=== PATIENT | female | born 1955 | race Caucasian/White ===

== ENCOUNTER 2017-07-17 17:44 | Emergency (ER) | payer BC, OTHER ==
[~2017-07-17 17:44] MED LIST: ALPR0.25 PO; ALPR0.5T PO; AMIT10TA PO; ASPI-612 PO; CEPH-264 PO; CIPR500T95 PO; CITA20TA5 PO; CITA20TA9 PO; FERR-26 PO; FERR325T72 PO; HYDR-2758 PO; METO25TA2 PO; MULT-246 PO; Metoprolol Tartrate PO; NITR0.4T SL; PANT40TA3 PO; POTA99TA10 PO; SIMV40TA3 PO; SUCR1TAB35 PO; Sennosides/Docusate Sodium PO; TRAM50TA PO; VITA1TAB19 PO
[2017-07-17 18:14] VITALS: BP 120/68
--- NOTE | 2017-07-17 18:49 | PHYS DOC ---
Past Medical History Past Medical History: CAD, High Cholesterol, Hypertension, [place] Past Surgical History: Coronary Bypass Surgery, Hysterectomy Additional Past Surgical Histo: Cardiac stent placement,neck surgery(polyp) Alcohol Use: None Drug Use: None Adult General Chief Complaint Chief Complaint: FINGER INJURY HPI HPI Patient is a 62 year old female with history of right index finger mild throbbing pain after hitting it on a bed frame today. Review of Systems Review of Systems Constitutional: Denies fever or chills [] Musculoskeletal: right index finger mild throbbing pain Integument: Denies rash or skin lesions [] Neurologic: Denies headache, focal weakness or sensory changes [] Allergies Allergies Allergies Coded Allergies Type Severity Reaction Last Updated Verified No Known Drug Allergies 02/06/16 No Physical Exam Physical Exam Constitutional: Well developed, well nourished, no acute distress, non-toxic appearance. [] Skin: Warm, dry, no erythema, no rash. [] Back: No tenderness, no CVA tenderness. [] Extremities: Right index finger with mild bruising on the ventral aspect proximal end of the finger. Full range of motion to the right index finger. +2 right radial pulse. Adequate radial sensation to the right index finger. Sensation intact to the right index finger. Cap refill less than 2 seconds the right index finger. Neurologic: Alert and oriented X 3, normal motor function, normal sensory function, no focal deficits noted. [] Psychologic: Affect normal, judgement normal, mood normal. [] Current Patient Data Vital Signs Vital Signs Date Time Temp Pulse Resp B/P (MAP) Pulse Ox O2 Delivery O2 Flow Rate FiO2 07/17/17 18:14 98.0 65 18 97 Room Air 98.0 EKG EKG [] Radiology/Procedures Radiology/Procedures [] Course & Med Decision Making Course & Med Decision Making Pertinent Labs and Imaging studies reviewed. (See chart for details) Patient is in the ED with right index contusion. Right index finger x-rays interpreted by Dr. Pro are negative for any acute findings. Splint provided to the finger by ED RN, neurovascular exam is intact. Ice elevation encouraged. Diclofenac for pain. Follow-up with Ortho in one week Tamiko Disclaimer Dragon Disclaimer This electronic medical record was generated, in whole or in part, using a voice recognition dictation system. Departure Departure Impression: Primary Impression: Contusion of right index finger Disposition: 01 HOME, SELF-CARE Condition: STABLE Referrals: SHIRLENE MUNGUIA MD (PCP) TO WAY II, MD Follow-up in one week if pain continues Patient Instructions: Contusion Additional Instructions: You were seen for right index finger contusion. Wear the splint as needed and tolerated. Ice and elevate the finger follow-up with your own doctor the provided orthopedic doctor in one week if pain continues. Scripts Diclofenac Sodium (DICLOFENAC SODIUM) 50 Mg Tablet.dr 1 TAB PO BID, #10 TAB 1 Refill Prov: JOHN PRESLEY APRN 07/17/17 Problem Qualifiers Primary Impression: Contusion of right index finger Encounter type: initial encounter Damage to nail status: without damage Qualified Codes: S60.021A - Contusion of right index finger without damage to nail, initial encounter JOHN PRESLEY APRN Jul 17, 2017 18:49
[2017-07-17] MEDS ORDERED: DICL50TA4 PO (19:08)
--- NOTE | 2017-07-18 08:27 | RAD ---
Indication injury to the index finger. An AP view of the right hand was obtained as well as additional oblique and lateral imaging targeted to the index finger. There is some mild soft tissue swelling of the index finger. No acute bony finding is seen
== END 2017-07-17 19:13 | disposition home or self-care (01) ==
LOC: ER 17:44
DX: S60.021A Contusion of right index finger without damage to nail, initial encounter (principal); I25.10 Atherosclerotic heart disease of native coronary artery without angina pectoris; E78.00 Pure hypercholesterolemia, unspecified; I10 Essential (primary) hypertension; I25.2 Old myocardial infarction; Z95.5 Presence of coronary angioplasty implant and graft; W22.8XXA Striking against or struck by other objects, initial encounter; Y93.89 Activity, other specified; Y92.89 Other specified places as the place of occurrence of the external cause; Y99.8 Other external cause status
CPT/HCPCS: 29130; 73140; 99284-25

== ENCOUNTER → 2018-04-29 | Outpatient (CLI) | payer OTHER | END | disposition home or self-care (01) | LOC: MAMMO 13:29 | DX: Z12.31 Encounter for screening mammogram for malignant neoplasm of breast (principal); I12.9 Hypertensive chronic kidney disease with stage 1 through stage 4 chronic kidney disease, or unspecified chronic kidney disease; N18.2 Chronic kidney disease, stage 2 (mild); E78.5 Hyperlipidemia, unspecified; E78.00 Pure hypercholesterolemia, unspecified; I25.10 Atherosclerotic heart disease of native coronary artery without angina pectoris; Z87.442 Personal history of urinary calculi | CPT/HCPCS: 77063; 77067 ==

== ENCOUNTER 2018-07-09 12:41 | Day surgery (SDC) | payer OTHER ==
[~2018-07-09] VITALS: Ht 170.2 cm; Wt 72.1 kg
[~2018-07-09 12:41] MED LIST changes: +AMIT25TA PO; +ATORVASTATIN CA80 MG PO; +CALC-31 PO; +CEFP200T PO; +CIPROFLOXACIN 400MG PREMIX 200 ML IV ONE; -CITA20TA5 PO; +CITA20TA6 PO; +DICL50TA4 PO; +DOCU-109 PO; -FERR-26 PO; +FERR325T14 PO; +HYDR-971 PO; +HYDROmorphone 2 MG/ML VIAL IV PRN; +IOHEXOL 300 MG/ML 100ML VIAL. ONE; +IV RINGERS,LACTATED 1000ML 1,000 ML IV SCH; +LIDOCAINE 1% PF 2 ML VIAL. ID PRN; +LIDOCAINE 2% JELLY 6ML IN APPLICATOR. ONE; +MORPHINE SULFATE 2 MG/ML VIAL. IV PRN; +NITR100C PO; +ONDANSETRON PF 4 MG/2 ML VIAL. IV PRN; +PANT20TA2 PO; +PROCHLORPERAZINE 10 MG/2 ML VIAL. IV PRN; +PSEU120T9 PO; +TICA90TA PO; +fentaNYL PF VIAL 100 MCG/2 ML VIAL IV PRN
[2018-07-09] MEDS ORDERED: IOHEXOL 300 MG/ML 100ML VIAL. ONE (12:44)
[2018-07-09] MEDS ORDERED: LIDOCAINE 2% JELLY 6ML IN APPLICATOR. ONE (12:44)
[2018-07-09] MEDS ORDERED: PROPOFOL 20 ML IV ONE (13:26)
[2018-07-09] MEDS ORDERED: MIDAZOLAM HCL/PF 2 MG/2 ML VIAL. ONE (13:26)
[2018-07-09] MEDS ORDERED: fentaNYL PF VIAL 100 MCG/2 ML VIAL ONE ×2 (13:26→15:53)
[2018-07-09] MEDS ORDERED: ONDANSETRON PF 4 MG/2 ML VIAL. ONE (13:27)
[2018-07-09] MEDS ORDERED: KETOROLAC 30 MG/ML INJ FOR OR. INJ ONE (13:27)
[2018-07-09] MEDS ORDERED: DEXAMETHASONE SOD PHOS 20 MG/5 ML VIAL. ONE (13:27)
[2018-07-09] MEDS ORDERED: ePHEDrine PF IN SALINE 50 MG/5 ML DISP.SYRIN IV ONE (14:13)
--- NOTE | 2018-07-09 16:31 | PDOC4 ---
OPERATIVE NOTE Pre-Op Diagnosis: right ureter stone right renal stone Post-Op Diagnosis: right renal stone right bidid renal pelvis right mid/upper pole compound calyces stones located in lowermost portion of upper collecting system Procedure Performed: right URS w laser stent Surgeon: Anesthesia Type: ga Blood Loss: 2ml Specimans Obtained: stone Findings: right UU ureter stricture v kink right renal stones Complications: none evident IKE CHATMAN MD Jul 09, 2018 16:31
--- NOTE | 2018-07-09 16:40 | DISCH ---
DISCHARGE INSTRUCTIONS Condition on Discharge Condition on Discharge: Stable Activity After Discharge Activity Instructions for Disc: Activity as tolerated Bathing Instructions: Shower-keep dressing dry, No Tub Bath until see Lifting Instructions after Dis: No heavy lifting Exercise Instruction after Dis: Progress as tolerated Driving Instructions after Dis: Do not drive, Do not drive today Weight Bearing Status after Di: No restrictions, Full weight bearing Diet after Discharge Diet after Discharge: Regular Diet Texture: Regular Liquid Texture: Thin Liquid Swallowing Supervision: None needed Wound Incision Care Wound/Incision Care: May get incision wet, No wound care needed Checks after Discharge Checks after discharge: Check blood press - daily Contacting the after DC Call your doctor for: Fever greater than 100 Follow-Up Follow up with: dr gaines 2 weeks w AGUSTO prior and possible stent removal in clinic Treatment/Equipment after DC Adaptive Equipment Issued: IKE Nagy MD Jul 09, 2018 16:40
[2018-07-09] MEDS ORDERED: HYDR-971 PO (16:41)
[2018-07-09] MEDS ORDERED: SULF1TAB24 PO (16:42)
[2018-07-09] MEDS ORDERED: TAMS0.4C97 PO (16:43)
[2018-07-09] MEDS ORDERED: HYDROcodone/APAP 5/325MG 1 TAB TABLET PO ONE (18:15)
[2018-07-09] MEDS ORDERED: HYDROcodone/APAP 5/325MG 1 TAB TABLET ONE (18:16)
--- NOTE | 2018-07-09 18:19 | OP ---
DATE OF SURGERY: 07/09/2018 PREOPERATIVE DIAGNOSIS: Right renal stone, right ureter stone. POSTOPERATIVE DIAGNOSES: 1. Right renal stone. 2. Right upper ureter stricture versus kink. 3. 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 PROCEDURE: Right ureteroscopy with laser lithotripsy and stent replacement. SURGEON: Usha Reynolds M.D. ANESTHESIA: General. CONDITION: Stable. COMPLICATIONS: None. ESTIMATED BLOOD LOSS: 2 mL FINDINGS: 1. Right upper ureter stricture versus kink with difficulty performing the proximal ureteroscopy and get into the kidney. 2. 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 The mid and upper calices are compound calices with very large collecting system. The stone was most dependent portion of the upper collecting system. PROCEDURE IN DETAIL: The patient was taken back to the procedure room and placed under general anesthesia in supine position per protocol. She was prepped and draped in usual sterile fashion in dorsal lithotomy position. Timeout was performed. SCDs were attached. IV antibiotics were administered. A 21-Gabonese rigid cystoscope was advanced per urethra into the bladder, was then visualized and covered with sensor wire into the collecting system. Given her preexisting knowledge of anatomical variant, the wire was seen entering the collecting system. Dual lumen ureteral catheter was placed. We placed a working wire. A ureteral access sheath was used to get close to the proximal ureter. Unable to advance into the kidney even with several maneuvers. Ureteroscope was removed and dual lumen ureteral catheter was used to straighten out the sensor wire and advanced into the upper collecting system. A safety wire was placed alongside it also in the upper collecting system. Aortic catheter was removed and scope was advanced over the wire all the way into the upper collecting system. I had poor visualization at this point and several maneuvers for better position failed; therefore, I switched to a digital ureteroscope. Stone was visualized in the lower most pole of the upper collective system, which was very dilated. There were 3-4 fragments that were spiculated. These were pulverized with 200 nanometer laser fiber. These were easily irrigated through the sheath. Two small pieces were removed and sent for analysis. Upon final inspection, there was no evidence of any potential obstructive stone. Pyelography visualized. No filling defects. Upon withdrawal of the scope, the proximal ureter had a mucosal abrasion from presumed instrumentation versus preexisting stricture, which is dilated during dual lumen ureteral catheter placement. Last, the ureter looked intact. I placed a stent endourologic with 6 x 26 stent with loops confirmed in the kidney and the bladder. The patient was awakened and taken to PACU in stable condition. DISPOSITION: I will keep the stent in there for 2 weeks given ureter stricture dilation. We will get a KUB 2 weeks afterwards. If no residual fragments, we will take out the stent in the clinic. USHA REYNOLDS MD DR: PORSHA/maggy JOB#: [id number] / [id number]
[2018-07-09 18:25] VITALS: BP 137/59
== END 2018-07-09 19:15 | disposition home or self-care (01) ==
LOC: SURG 12:41
PROVIDERS: ATTEND Urology
DX: N20.0 Calculus of kidney (principal); N13.5 Crossing vessel and stricture of ureter without hydronephrosis; I25.10 Atherosclerotic heart disease of native coronary artery without angina pectoris; K44.9 Diaphragmatic hernia without obstruction or gangrene; Q63.8 Other specified congenital malformations of kidney; I10 Essential (primary) hypertension; E78.5 Hyperlipidemia, unspecified; K21.9 Gastro-esophageal reflux disease without esophagitis; M19.90 Unspecified osteoarthritis, unspecified site; F41.9 Anxiety disorder, unspecified; I25.2 Old myocardial infarction; Z86.010 Personal history of colon polyps; Z95.1 Presence of aortocoronary bypass graft; Z79.899 Other long term (current) drug therapy; Z79.82 Long term (current) use of aspirin; Z90.710 Acquired absence of both cervix and uterus; Z95.5 Presence of coronary angioplasty implant and graft; Z90.49 Acquired absence of other specified parts of digestive tract; Z98.890 Other specified postprocedural states; Z87.891 Personal history of nicotine dependence
CPT/HCPCS: 52356; 76000; A7015; C1713; C1769; C2617; J0744; J1100; J1885; J2250; J2405; J2704; J3010; J7120; Q9967

== ENCOUNTER → 2018-07-29 | Outpatient (CLI) | payer OTHER ==
[2018-07-09 18:25] VITALS: BP 137/59
[~2018-07-29] MED LIST changes: -CIPROFLOXACIN 400MG PREMIX 200 ML IV ONE; -HYDROmorphone 2 MG/ML VIAL IV PRN; -IOHEXOL 300 MG/ML 100ML VIAL. ONE; -IV RINGERS,LACTATED 1000ML 1,000 ML IV SCH; -LIDOCAINE 1% PF 2 ML VIAL. ID PRN; -LIDOCAINE 2% JELLY 6ML IN APPLICATOR. ONE; -MORPHINE SULFATE 2 MG/ML VIAL. IV PRN; -ONDANSETRON PF 4 MG/2 ML VIAL. IV PRN; -PROCHLORPERAZINE 10 MG/2 ML VIAL. IV PRN; +SULF1TAB24 PO; +TAMS0.4C97 PO; -fentaNYL PF VIAL 100 MCG/2 ML VIAL IV PRN
--- NOTE | 2018-07-29 17:04 | RAD ---
KUB, 07/29/2018: HISTORY: Right renal calculus with stent, follow-up A right ureteral stent is in place with its upper pigtail projected over the region of the right renal pelvis and its lower pigtail projected over the inferior aspect of the urinary bladder. The tiny calculus present in the proximal right ureter on the CT study of 06/17/2018 is no longer visible at that level. A small radiopacity projected near the shaft of the right ureteral stent at the upper sacral level is probably arterial in nature. A ureteral calculus is less likely. The abdominal gas pattern is unremarkable. Surgical clips are present in the right upper quadrant and in the upper pelvis near the midline. There is no evidence organomegaly. IMPRESSION: The right ureteral stent is in satisfactory position. Electronically signed by: Tyrese Patton MD (07/29/2018 5:01 PM) [facility]
== END | disposition home or self-care (01) ==
LOC: RAD 14:31
PROVIDERS: ATTEND Urology
DX: N20.0 Calculus of kidney (principal)
CPT/HCPCS: 74018

== ENCOUNTER → 2019-03-16 | Outpatient (CLI) | payer MEDICARE ==
[~2019-03-16] MED LIST changes: -HYDR-2758 PO; +HYDR-2761 PO; +HYDR-3164 PO; -HYDR-971 PO
--- NOTE | 2019-03-16 12:08 | RAD ---
MR of the left knee HISTORY: Chronic knee pain. TECHNIQUE: Routine multiplanar sequences are obtained. FINDINGS: Mild distortion and signal at the posterior root attachment of the medial meniscus compatible with mild degeneration. No actual tear is seen. No evidence of lateral meniscal tear. The anterior and posterior cruciate ligaments are intact. Medial collateral ligament is intact. Iliotibial band unremarkable. Fibular collateral ligament, biceps femoris tendon and popliteus tendon are intact. Extensor mechanism is intact. Increased signal and thickening of the medial gastrocnemius tendon at the femoral attachment with subjacent cystic change. Subchondral cystic change and chondromalacia at the posterior nonweightbearing lateral femoral condyle. Chondral thinning at the posterior lateral tibial plateau. No aggressive bone destruction or acute fracture. Small Stone's cyst. IMPRESSION: 1. Primary osteoarthritis. 2. Degenerative change. 3. Tendinosis and/or partial tearing of the medial gastrocnemius tendon attachment to the femur. Electronically signed by: Valeriy Shell MD (03/16/2019 12:05 PM) [id number]
== END | disposition home or self-care (01) ==
LOC: MRI 10:02
PROVIDERS: ATTEND Nurse Practitioner Family
DX: M94.262 Chondromalacia, left knee (principal); M17.12 Unilateral primary osteoarthritis, left knee; M71.22 Synovial cyst of popliteal space [Baker], left knee; G89.29 Other chronic pain
CPT/HCPCS: 73721

== ENCOUNTER → 2019-11-30 | Day surgery (SDC) | payer MEDICARE ==
[~2019-11-30] MED LIST changes: +HYDROmorphone 2 MG/ML VIAL IV PRN; +IV RINGERS,LACTATED 1000ML 1,000 ML IV SCH; +LIDOCAINE 1% PF 2 ML VIAL. ID PRN; +LIDOCAINE 2% PF 5 ML VIAL. ONE; +MORPHINE SULFATE 2 MG/ML VIAL. IV PRN; -NITR0.4T SL; +NITR0.4T24 SL; +ONDANSETRON PF 4 MG/2 ML VIAL. IV PRN; -PANT40TA3 PO; +PANT40TA77 PO; +PROCHLORPERAZINE 10 MG/2 ML VIAL. IV PRN; +PROPOFOL 20 ML IV ONE; +SIMV40TA18 PO; -SIMV40TA3 PO; +fentaNYL PF VIAL 100 MCG/2 ML VIAL IV PRN
--- NOTE | 2019-11-30 13:29 | PDOC4 ---
PROCEDURE Procedure EGD/dilation Indication: dysphagia Meds: per anesthesia Findings: E--Healed reflux/Shatzk's ring at 35cm. G--Small hiatal hernia. D--normal to second. --Dilated with 52F hodges; nil resistance and no blood on dilator after. Darwin. well. IMP: Anahy's, dilated. REC: Continue meds, diet as before. F/u in 2 weeks to gauge response to dilation. MAYRA LOPEZ MD Nov 30, 2019 13:29
[2019-11-30 13:58] VITALS: BP 121/59
== END ==
LOC: ENDOS 12:04
PROVIDERS: ATTEND Internal Medicine Gastroenterology
DX: R13.10 Dysphagia, unspecified (principal); K22.2 Esophageal obstruction; K21.0 Gastro-esophageal reflux disease with esophagitis; K44.9 Diaphragmatic hernia without obstruction or gangrene; E78.00 Pure hypercholesterolemia, unspecified; I10 Essential (primary) hypertension; Z87.39 Personal history of other diseases of the musculoskeletal system and connective tissue; Z95.820 Peripheral vascular angioplasty status with implants and grafts; Z86.010 Personal history of colon polyps; Z90.710 Acquired absence of both cervix and uterus; Z98.890 Other specified postprocedural states; Z95.1 Presence of aortocoronary bypass graft
CPT/HCPCS: 43235; 43450; J2001; J2704

== ENCOUNTER → 2020-05-27 | Outpatient (CLI) | payer MEDICARE ==
[2019-11-30 13:58] VITALS: BP 121/59
[~2020-05-27] MED LIST changes: -ASPI-612 PO; +ASPI-886 PO; -HYDROmorphone 2 MG/ML VIAL IV PRN; -IV RINGERS,LACTATED 1000ML 1,000 ML IV SCH; -LIDOCAINE 1% PF 2 ML VIAL. ID PRN; -LIDOCAINE 2% PF 5 ML VIAL. ONE; -MORPHINE SULFATE 2 MG/ML VIAL. IV PRN; -ONDANSETRON PF 4 MG/2 ML VIAL. IV PRN; -PROCHLORPERAZINE 10 MG/2 ML VIAL. IV PRN; -PROPOFOL 20 ML IV ONE; +TOPI25TA7 PO; -fentaNYL PF VIAL 100 MCG/2 ML VIAL IV PRN
== END | disposition home or self-care (01) ==
LOC: LAB 09:09
PROVIDERS: ATTEND Internal Medicine Gastroenterology
DX: Z01.812 Encounter for preprocedural laboratory examination (principal); Z20.828 Contact with and (suspected) exposure to other viral communicable diseases
CPT/HCPCS: U0003-CS

== ENCOUNTER → 2020-05-30 | Day surgery (SDC) | payer MEDICARE ==
[~2020-05-30] MED LIST changes: +IV RINGERS,LACTATED 1000ML 1,000 ML IV SCH; +LIDOCAINE 2% PF 5 ML VIAL. ONE; +PROPOFOL 10 MG/ML (20ML) VIAL. IV ONE
--- NOTE | 2020-05-30 13:00 | PDOC1 ---
History and Physical Date of Admission Date of Admission DATE: 05/30/20 TIME: 12:55 Identification/Chief Complaint Chief Complaint H/o polyps Source Source: Chart review, Patient History of Present Illness History of Present Illness 65 y/o female with h/o colon polyps, last surveillance in 2016 and presents for same. Known diverticulosis. H/o GERD and post-kolton. Past Medical History Cardiovascular: CAD, HTN, Hyperlipidemia Past Surgical History Past Surgical History: Cholecystectomy, CABG, Hysterectomy Family History Family History: Coronary Artery Disease, Hypertension Social History ALCOHOL: none Current Medications Current Medications Current Medications Ringer's Solution 1,000 ml @ 50 mls/hr Q20H IV ; Start 05/30/20 at 07:00; Stop 05/30/20 at 18:59 Active Scripts Active Reported Topiramate 25 Mg Tablet 1 Tab PO BID 30 Days Colace (Docusate Sodium) 100 Mg Capsule 1 Cap PO BID Protonix (Pantoprazole Sodium) 20 Mg Tablet.dr 40 Mg PO DAILY08 Calcium 500 + D Tablet (Calcium Carbonate/Vitamin D3) 1 Each Tablet 1 Each PO BID Atorvastatin Calcium 80 Mg Tablet 80 Mg PO HS Carafate (Sucralfate) 1 Gm Tablet 1 Gm PO BID LAST DOSE 12/06 11AM Tramadol Hcl 50 Mg Tablet 1 Tab PO Q4HRS PRN Xanax (Alprazolam) 0.5 Mg Tablet 1 Tab PO BID PRN Multi-Vitamin Daily (Multivitamin) 1 Each Tablet 1 Each PO HS LAST DOSE 12/05 HS B Complex (Vitamin B Complex) 1 Each Tablet 1 Each PO DAILY LAST DOSE 03/ AM Aspirin Ec (Aspirin) 81 Mg Tablet.dr 1 Tab PO DAILY last dose 12/05 HS Toprol Xl (Metoprolol Succinate) 25 Mg Tab.er.24h 1 Tab PO BID last dose this am Allergies Allergies: Coded Allergies: No Known Drug Allergies (Unverified , 05/30/20) ROS Review of System Otherwise negative. Physical Exam General: Alert, Oriented X3, Cooperative, No acute distress Lungs: Clear to auscultation Heart: S1S2, RRR, no gallops, no murmurs Abdomen: Normal bowel sounds, Soft, No tenderness, No hepatosplenomegaly Rectal Exam: deferred (to time of procedure) Extremities: No cyanosis, No edema Skin: No significant lesion Neuro: Normal speech, Strength at 5/5 X4 ext, Normal tone, Sensation intact, Cranial nerves 3-12 NL, Reflexes 2+ Psych/Mental Status: Mental status NL, Mood NL Vitals Vitals Vital Signs Date Time Temp Pulse Resp B/P (MAP) Pulse Ox O2 Delivery O2 Flow Rate FiO2 05/30/20 12:30 97.8 89 18 98 97.8 VTE Prophylaxis Ordered VTE Prophylaxis Devices: No VTE Pharmacological Prophylaxi: No Assessment/Plan Assessment/Plan IMP: H/o polyps, due. PLAN: Colonoscopy MAYRA LOPEZ MD May 30, 2020 13:00
--- NOTE | 2020-05-30 13:23 | PDOC4 ---
PROCEDURE Procedure Colonoscopy Indication: h/o polyps Meds: per anesthesia Findings: BURKE normal --'Scope advanced to cecum. Prep excellent. Mucosa normal. Multiple diverticula, sigmoid. No polyps, masses, etc. Retroflex normal. Darwin. well. IMP: Diverticulosis REC: Repeat exam in 3-5 years. February f/u with me prn. Resume home meds, diet. MAYRA LOPEZ MD May 30, 2020 13:23
[2020-05-30 13:55] VITALS: BP 114/58
== END | disposition home or self-care (01) ==
LOC: ENDOS 12:20
PROVIDERS: ATTEND Internal Medicine Gastroenterology
DX: Z12.11 Encounter for screening for malignant neoplasm of colon (principal); I10 Essential (primary) hypertension; E78.5 Hyperlipidemia, unspecified; K57.30 Diverticulosis of large intestine without perforation or abscess without bleeding; I25.10 Atherosclerotic heart disease of native coronary artery without angina pectoris; Z90.49 Acquired absence of other specified parts of digestive tract; Z98.890 Other specified postprocedural states; Z79.899 Other long term (current) drug therapy; Z86.010 Personal history of colon polyps; Z82.49 Family history of ischemic heart disease and other diseases of the circulatory system; Z79.82 Long term (current) use of aspirin; Z87.891 Personal history of nicotine dependence
CPT/HCPCS: G0105; J2704; 45378

== ENCOUNTER 2021-09-13 11:22 | Emergency (ER) | payer MEDICARE ==
[~2021-09-13] VITALS: Ht 167.6 cm; Wt 73.2 kg
[~2021-09-13 11:22] MED LIST changes: -IV RINGERS,LACTATED 1000ML 1,000 ML IV SCH; -LIDOCAINE 2% PF 5 ML VIAL. ONE; -PROPOFOL 10 MG/ML (20ML) VIAL. IV ONE
[2021-09-13] MEDS ORDERED: IV NORMAL SALINE 1000ML BAG 1,000 ML IV ONE (12:15)
[2021-09-13] MEDS ORDERED: MAGNESIUM SULFATE 2GM 50 ML IV ONE (12:15)
[2021-09-13] MEDS ORDERED: diphenhydrAMINE 50 MG/ML VIAL IVP ONE (12:15)
[2021-09-13] MEDS ORDERED: PROCHLORPERAZINE 10 MG/2 ML VIAL. IV ONE (12:15)
[2021-09-13 12:35] LABS: BASO % 1 % (0-3); EOS # 0.1 x10^3/uL (0.0-0.7); EOS % 2 % (0-3); HEMATOCRIT 40.4 % (36.0-47.0); HEMOGLOBIN 13.3 g/dL (12.0-15.5); LYMPH # 0.5 x10^3/uL (1.0-4.8); LYMPH % 8 % (24-48); MEAN CORPUSCULAR HEMOGLOBIN 29 pg (25-35); MEAN CORPUSCULAR HGB CONC 33 g/dL (31-37); MEAN CORPUSCULAR VOLUME 89 fL (79-100); MONO # 0.4 x10^3/uL (0.0-1.1); MONO % 7 % (0-9); NEUT # 5.7 x10^3/uL (1.8-7.7); NEUT % 83 % (31-73); PLATELET COUNT 228 x10^3/uL (140-400); RED BLOOD COUNT 4.52 x10^6/uL (3.50-5.40); RED CELL DISTRIBUTION WIDTH 12.6 % (11.5-14.5); WHITE BLOOD COUNT 6.8 x10^3/uL (4.0-11.0)
[2021-09-13 12:50] LABS: CALCIUM 9.4 mg/dL (8.5-10.1); CREATININE 0.6 mg/dL (0.6-1.0); GFR 99.7; POTASSIUM 4.2 mmol/L (3.5-5.1)
[2021-09-13 12:54] LABS: INFLUENZA A PATIENT NEGATIVE (NEGATIVE); INFLUENZA B PATIENT NEGATIVE (NEGATIVE)
[2021-09-13 12:55] LABS: ALBUMIN 3.7 g/dL (3.4-5.0); ALBUMIN/GLOBULIN RATIO 1.1 (1.0-1.7); TOTAL BILIRUBIN 0.5 mg/dL (0.2-1.0); TOTAL PROTEIN 7.2 g/dL (6.4-8.2)
--- NOTE | 2021-09-13 13:50 | RAD ---
XR CHEST 1V INDICATION: headache COMPARISON STUDY: 06/18/2018. FINDINGS: Lungs: Normal lung volume. No pulmonary mass or consolidation. The tracheobronchial tree and hilar st ructures are normal. Pleura: No pleural effusion or pneumothorax. Heart and Mediastinum: Normal cardiac size. CABG. The great vessels of the thorax are normal. IMPRESSION: No acute cardiopulmonary process. Electronically signed by: Lalit Barker MD (09/13/2021 1:48 PM) [id number]
--- NOTE | 2021-09-13 13:55 | RAD ---
EXAM: CT Head without IV contrast CLINICAL HISTORY: headache COMPARISON: None. TECHNIQUE: Routine CT of the head without contrast. PQRS compliance statement - One or more of the following individualized dose reduction techniques wer e utilized for this study: 1. Automated exposure control 2. Adjustment of the mA and/or kV according to patient size 3. Use of iterative reconstruction technique FINDINGS: There is no evidence of hemorrhage, mass or extra-axial fluid collection. Chatterjee-white differentiation is maintained with no evidence of edema. There is no mass effect or shift of the intracranial structures. The ventricles, basilar cisterns and cortical sulci are normal in size and configuration for the radha ents stated age. The cerebellum and brainstem are unremarkable. The calvarium demonstrates no evidence of fracture or focal lesion. There is normal aeration of the visualized paranasal sinuses and mastoid air cells. The visualized portions of the orbits are normal. Atherosclerotic calcifications of the intracranial internal carotid and vertebral arteries is seen. IMPRESSION: No evidence for acute intracranial process. Electronically signed by: Enzo Malone MD (09/13/2021 1:53 PM) [facility]
[2021-09-13 15:29] VITALS: BP 157/72
[2021-09-13] MEDS ORDERED: KETOROLAC 15 MG/ML VIAL. IVP ONE (15:30)
[2021-09-13] MEDS ORDERED: ACETAMINOPHEN 500 MG TABLET PO ONE (15:30)
--- NOTE | 2021-09-13 15:52 | PHYS DOC ---
Past Medical History Past Medical History: CAD, High Cholesterol, Hypertension, [place] Past Surgical History: Angioplasty, Coronary Bypass Surgery, Hysterectomy Additional Past Surgical Histo: Cardiac stent placement,neck surgery(polyp) Smoking Status: Never Smoker Alcohol Use: None Drug Use: None Adult General Chief Complaint Chief Complaint: FLU SYMPTOM HPI HPI The patient is a 66-year-old female with a history of hypertension, hyperlipidemia, coronary artery disease and chronic headache on Topamax for prevention. Patient is fully vaccinated against COVID-19. Ms. Hou presents for evaluation of nasal congestion, rhinorrhea and mild dry cough with onset over the last day or so. Associated gradual onset bilateral frontal headache which she states feels similar to headaches she often gets, only worse. No associated fevers, vomiting, focal or lateralizing weakness, numbness or tingling, neck stiffness/pain/meningismus (patient ranges her neck fully in all dimensions without discomfort or distress), vision changes, shortness of breath or chest pain, abdominal pain, flank pain, back pain, dysuria, hematuria, polyuria or oliguria, changes in bowel habits. Patient is alert and pleasantly and appropriately interactive and in no acute distress with appropriate vital signs upon initial evaluation here in the emergency department. Review of Systems Review of Systems A 12 point review of systems was completed and was negative except where noted in HPI above. Current Medications Current Medications Current Medications Medications (Trade) Dose Ordered Sig/Keshawn Start Time Stop Time Status Last Admin Dose Admin Acetaminophen (Tylenol) 1,000 mg 1X ONCE 09/13/21 15:30 09/13/21 15:31 DC Diphenhydramine HCl (Benadryl) 25 mg 1X ONCE 09/13/21 12:15 09/13/21 12:16 DC 09/13/21 12:32 25 MG Info (CONTRAST GIVEN -- Rx MONITORING) 1 each PRN DAILY PRN 09/13/21 16:00 09/15/21 15:59 Iohexol (Omnipaque 350 Mg/ml) 75 ml 1X ONCE 09/13/21 16:00 09/13/21 16:01 DC 09/13/21 15:59 75 ML Ketorolac Tromethamine (Toradol 15mg Vial) 15 mg 1X ONCE 09/13/21 15:30 09/13/21 15:31 DC Magnesium Sulfate 50 ml @ 25 mls/hr 1X ONCE 09/13/21 12:15 09/13/21 14:14 DC 09/13/21 12:36 25 MLS/HR Prochlorperazine Edisylate (Compazine) 10 mg 1X ONCE 09/13/21 12:15 09/13/21 12:16 DC 09/13/21 12:33 10 MG Sodium Chloride 1,000 ml @ 1,000 mls/hr 1X ONCE 09/13/21 12:15 09/13/21 13:14 DC 09/13/21 12:35 1,000 MLS/HR Allergies Allergies Allergies Coded Allergies Type Severity Reaction Last Updated Verified No Known Drug Allergies 05/30/20 No Physical Exam Physical Exam 66-year-old female appearing nontoxic and in no acute distress. Head is normocephalic and atraumatic. Neck is supple and nontender. Oropharynx is moist. Lungs are clear to auscultation at all stations. There is a normal S1 and S2 without rubs or gallops and capillary refill is appropriate, less than 2 seconds globally. Abdomen is soft, nontender and nondistended. Skin is warm and dry without cyanosis, clubbing or edema. Psychiatrically, the patient demonstrates appropriate mood and affect and is alert. Neurologically, cranial nerves II through XII are intact and there are no lateralizing deficits seen. Speech is normal. Language is normal. Coordination is normal. There is no dysmetria with mioade-il-celd or [id number]-wu-[id number] bilaterally. Strength is 5 out of 5 in all joints of bilateral upper and lower extremities. Sensation is intact light touch in bilateral upper and lower extremities. Patient ambulates with a narrow, steady, non-ataxic gait here in the emergency department and is alert and oriented x4. Current Patient Data Vital Signs Vital Signs Date Time Temp Pulse Resp B/P (MAP) Pulse Ox O2 Delivery O2 Flow Rate FiO2 09/13/21 15:29 110 17 157/72 (100) 94 Room Air 09/13/21 11:48 98.7 98.7 Lab Values Laboratory Tests Test 09/13/21 12:10 09/13/21 12:20 Influenza Type A Antigen Negative (NEGATIVE) Influenza Type B Antigen Negative (NEGATIVE) SARS-CoV-2 Antigen (Rapid) Negative (NEGATIVE) White Blood Count 6.8 x10^3/uL (4.0-11.0) Red Blood Count 4.52 x10^6/uL (3.50-5.40) Hemoglobin 13.3 g/dL (12.0-15.5) Hematocrit 40.4 % (36.0-47.0) Mean Corpuscular Volume 89 fL (79-100) Mean Corpuscular Hemoglobin 29 pg (25-35) Mean Corpuscular Hemoglobin Concent 33 g/dL (31-37) Red Cell Distribution Width 12.6 % (11.5-14.5) Platelet Count 228 x10^3/uL (140-400) Neutrophils (%) (Auto) 83 % (31-73) H Lymphocytes (%) (Auto) 8 % (24-48) L Monocytes (%) (Auto) 7 % (0-9) Eosinophils (%) (Auto) 2 % (0-3) Basophils (%) (Auto) 1 % (0-3) Neutrophils # (Auto) 5.7 x10^3/uL (1.8-7.7) Lymphocytes # (Auto) 0.5 x10^3/uL (1.0-4.8) L Monocytes # (Auto) 0.4 x10^3/uL (0.0-1.1) Eosinophils # (Auto) 0.1 x10^3/uL (0.0-0.7) Basophils # (Auto) 0.0 x10^3/uL (0.0-0.2) Sodium Level 139 mmol/L (136-145) Potassium Level 4.2 mmol/L (3.5-5.1) Chloride Level 102 mmol/L (98-107) Carbon Dioxide Level 23 mmol/L (21-32) Anion Gap 14 (6-14) Blood Urea Nitrogen 13 mg/dL (7-20) Creatinine 0.6 mg/dL (0.6-1.0) Estimated GFR (Cockcroft-Gault) 99.7 BUN/Creatinine Ratio 22 (6-20) H Glucose Level 97 mg/dL (70-99) Calcium Level 9.4 mg/dL (8.5-10.1) Total Bilirubin 0.5 mg/dL (0.2-1.0) Aspartate Amino Transferase (AST) 42 U/L (15-37) H Alanine Aminotransferase (ALT) 30 U/L (14-59) Alkaline Phosphatase 126 U/L (46-116) H Total Protein 7.2 g/dL (6.4-8.2) Albumin 3.7 g/dL (3.4-5.0) Albumin/Globulin Ratio 1.1 (1.0-1.7) Laboratory Tests 09/13/21 12:20 Laboratory Tests 09/13/21 12:20 EKG EKG Sinus rhythm, rate 100, no acute ST elevation or depression, CA 142, QRS 94, QTc 460, EP interpretation. Nonischemic tracing, intervals appropriate. Radiology/Procedures Radiology/Procedures [] Course & Med Decision Making Course & Med Decision Making Elderly female with a history of chronic problems with headache as well as other comorbidities presenting for evaluation of nasal congestion, rhinorrhea and dry cough in association with a gradual onset bilateral frontal headache which she states is worse than her usual headaches. Labs, chest x-ray, and CT imaging are all nonacute. Patient is feeling better after therapy as per flow sheet here in the emergency department. Headache is nearly completely gone. Vital signs remained appropriate. In view of resolution of presenting symptoms and reassuring work-up in this well-appearing patient, will discharge home to follow-up very closely with primary care. Patient is to rest, hydrate and use her home medications for headache management. She understands that if she feels worse instead of better, develops recurrence of your symptoms or has any other new symptoms of concern that she is to return with him to the emergency department right away for reevaluation. All questions are answered. Dragon Disclaimer Dragon Disclaimer This electronic medical record was generated, in whole or in part, using a voice recognition dictation system. Departure Departure Impression: Primary Impression: Upper respiratory infection, viral Additional Impression: Acute headache Disposition: HOME / SELF CARE / HOMELESS Condition: IMPROVED Referrals: SHIRLENE MUNGUIA MD (PCP) Patient Instructions: General Headache Without Cause Additional Instructions: Follow-up very closely with your primary care doctor in the next 1 to 2 days in the office for a reevaluation of your symptoms and to discussion of next best steps in care. Drink plenty of fluids and get plenty of rest. Return to the emergency department right away for worsening symptoms of any kind or with any other new symptoms of concern. Problem Qualifiers LITA WORLEY MD Sep 13, 2021 15:52
[2021-09-13] MEDS ORDERED: IOHEXOL 350 MG/ML 100 ML VIAL. IV ONE (16:00)
[2021-09-13] MEDS ORDERED: CONTRAST GIVEN. MC PRN (16:00)
--- NOTE | 2021-09-13 16:52 | RAD ---
CLINICAL HISTORY: Reason: headache COMPARISON: None available. TECHNIQUE: CT angiogram of the head and neck was performed following the administration of IV contras t. Multiplanar reconstructed images were obtained including 3D reconstructed images performed on an [employer] work station. Stenosis if present in the carotid arteries were measured using [employer] crite kristine. PQRS compliance statement - One or more of the following individualized dose reduction techniques wer e utilized for this study: 1. Automated exposure control 2. Adjustment of the mA and/or kV according to patient size 3. Use of iterative reconstruction technique FINDINGS: CTA of the intracranial circulation reveals normal appearing distal internal carotid arteries includi ng the distal cervical, petrous, cavernous and supraclinoid portions. The anterior cerebral arteries are well visualized and without evidence of stenosis or occlusion. The middle cerebral arteries are well visualized and without evidence of stenosis or occlusion. The posterior cerebral arteries are well visualized and without evidence of stenosis or occlusion. The vertebral basilar system is normal with no evidence of stenosis or occlusion. Bovine configuration of the aortic arch. There is approximately 20 percent narrowing at the origin of the left subclavian artery. There is approximately 50 percent narrowing at the distal right common carotid artery just proximal t o the carotid bulb. Left common carotid artery is likely patent. Atherosclerotic calcifications of th e common carotid arteries. There is approximately 50 percent narrowing origin of right internal carotid artery. Otherwise the in ternal carotid arteries are patent in the neck with intermittent atherosclerotic calcifications. There is approximately 50 percent narrowing at the origin of the external carotid artery bilaterally. The vertebral arteries in the neck are well visualized bilaterally and unremarkable. Emphysematous changes are seen bilaterally. Biapical pleural/parenchymal scarring/thickening. Esophag eal thickening. Thyroid is unremarkable. Multilevel degenerative changes of the spine are seen. IMPRESSION: 1. No evidence for high-grade stenosis or occlusion of the carotid or vertebral arteries in the neck . 2. No evidence for high-grade stenosis or occlusion of the intracranial cerebral arteries were verte bral basilar artery Electronically signed by: Enzo Malone MD (09/13/2021 4:49 PM) KAVON
--- NOTE | 2021-09-13 18:57 | EKG ---
[facility] [address] [place] [address] Test Date: 2021-09-13 Test Time: 12:09:02 Pat Name: BRANT IGNACIO Department: Room: Gender: F [facility]: : 1955 Requested By: LITA WORLEY Order Number: [id number] Reading MD: Cristian Jordan Measurements Intervals [place] Rate: 100 P: 48 LA: 142 QRS: 52 QRSD: 94 T: 64 QT: 354 QTc: 460 Interpretive Statements SINUS RHYTHM Electronically Signed On 09-14-2021 12:35:53 [employer] REPAIRER by Cristian Jordan
--- NOTE | 2021-09-14 16:25 | NUR ---
IP: Informed pt of positive covid test and the need to quarantine for 10 days. Pt verbalized understanding.
== END 2021-09-13 17:50 | disposition home or self-care (01) ==
LOC: ER 11:22
DX: U07.1 COVID-19 (principal); J06.9 Acute upper respiratory infection, unspecified; B97.89 Other viral agents as the cause of diseases classified elsewhere; R51.9 Headache, unspecified; I10 Essential (primary) hypertension; E78.00 Pure hypercholesterolemia, unspecified; I25.10 Atherosclerotic heart disease of native coronary artery without angina pectoris; I25.2 Old myocardial infarction; Z95.1 Presence of aortocoronary bypass graft; Z95.5 Presence of coronary angioplasty implant and graft; Z90.710 Acquired absence of both cervix and uterus
CPT/HCPCS: 36415; 70450; 70496; 70498; 71045; 80053; 85025; 87426; 87804; 93005; 96365; 96375; 99285; J0780; J1200; J3475; J7030; Q9967; U0003; U0005

== ENCOUNTER → 2022-01-29 | Outpatient (CLI) | payer MEDICARE ==
[~2022-01-29] MED LIST changes: +GADOTERATE 7.5 MMOL/15ML VIAL. IVP ONE
--- NOTE | 2022-01-29 14:12 | KCIC ---
EXAM: Brain MRI with and without contrast. HISTORY: Dizziness. Leaning to the right when walking. TECHNIQUE: Multiplanar, multisequence magnetic resonance imaging of the brain was performed prior to and following the administration of intravenous contrast. COMPARISON: CT dated 09/13/2021. FINDINGS: There is no restricted diffusion to suggest acute or subacute infarction. There is no susce ptibility effect to suggest hemorrhage. There is no mass effect or midline shift. There is no hydroce phalus. There are scattered foci of signal change within the cerebral white matter, likely due to chr onic small vessel disease in a patient of this age. The orbits are unremarkable. There is ethmoid sinus mucosal thickening. There is minimal right mastoi d fluid. There are normal flow voids within the cerebral vessels. There is no suspicious calvarial le heaven. There is no suspicious enhancing lesion. IMPRESSION: 1. No acute intracranial finding. 2. Few scattered foci of signal change within the cerebral white matter, most commonly due to chronic small vessel disease in a patient of this age. Electronically signed by: Kareen Wood MD (01/29/2022 2:09 PM) [id number]
== END ==
LOC: KCIC MRI 12:35
PROVIDERS: ATTEND Internal Medicine
DX: R90.82 White matter disease, unspecified (principal); J32.2 Chronic ethmoidal sinusitis; R27.0 Ataxia, unspecified
CPT/HCPCS: 70553; 82565; A9575